=== PATIENT | female | born 1990 | race Two or more races ===

== ENCOUNTER 2023-11-12 22:48 | Emergency (ER) | payer OTHER ==
[~2023-11-12] VITALS: Ht 167.6 cm; Wt 114.3 kg
[2023-11-13 00:30] LABS: HEMATOCRIT 34.8 % (36.0-45.00); MEAN CELL VOLUME 86.2 fL (80.00-100.00); PLATELET COUNT 262 K/uL (150-450); RED BLOOD COUNT 4.03 M/uL (4.00-6.00)
[2023-11-13 00:48] LABS: HEMOGLOBIN 11.8 g/dL (12.0-15.00); MEAN CORPUSCULAR HEMOGLOBIN 29.2 pg (27.00-32.0)
== END 2023-11-13 01:05 | disposition home or self-care (01) ==
LOC: ER 22:50
DX: O26.899 Other specified pregnancy related conditions, unspecified trimester (principal); R10.2 Pelvic and perineal pain; Z3A.00 Weeks of gestation of pregnancy not specified; Z91.013 Allergy to seafood

== ENCOUNTER 2023-11-18 21:57 | Emergency (ER) | payer OTHER ==
[~2023-11-18] VITALS: Ht 167.6 cm; Wt 124.3 kg
[2023-11-19] MEDS ORDERED: ORPHENADRINE CITRATE 30 MG/ML AMPUL IM STA (00:28)
[2023-11-19] MEDS ORDERED: ACETAMINOPHEN 500 MG GEL..CAP PO STA (00:28)
[2023-11-19] MEDS ORDERED: ORPHENADRINE CITRATE 30 MG/ML AMPUL ONE (00:30)
[2023-11-19] MEDS ORDERED: NORFLEX100MG PO (00:30)
[2023-11-19] MEDS ORDERED: ACETAMINOPHEN 500 MG GEL..CAP PO ONE (00:31)
== END 2023-11-19 00:42 ==
LOC: ER 21:58
DX: M62.838 Other muscle spasm (principal); Z91.013 Allergy to seafood

== ENCOUNTER 2023-12-22 04:21 | Emergency (ER) | payer OTHER ==
[~2023-12-22] VITALS: Ht 168.9 cm; Wt 95.3 kg
[~2023-12-22 04:21] MED LIST: NORFLEX100MG PO
[2023-12-22] MEDS ORDERED: ZOFRAN8 MG PO (04:33)
[2023-12-22] MEDS ORDERED: PROMETHAZINE HCL 50 MG/ML AMPUL IM STA (04:41)
[2023-12-22] MEDS ORDERED: METOCLOPRAMIDE HCL 5 MG/ML VIAL IM STA (04:41)
[2023-12-22] MEDS ORDERED: FAMOtidine 10 MG/ML (4ML VIAL) IV PUSH STA (04:42)
[2023-12-22] MEDS ORDERED: RINGERS SOLUTION,LACTATED 500 ML IV STA (04:43)
== END 2023-12-22 06:21 | disposition home or self-care (01) ==
LOC: ER 04:22
DX: K30 Functional dyspepsia (principal); K44.9 Diaphragmatic hernia without obstruction or gangrene